=== PATIENT | male | born 1990 | race Caucasian/White ===

== ENCOUNTER 2019-08-20 10:46 | Emergency (ER) | payer MEDICAID ==
[~2019-08-20] VITALS: Ht 185.4 cm; Wt 125.0 kg
[2019-08-20] MEDS ORDERED: DIVA500T2 PO (10:53)
--- NOTE | 2019-08-20 10:56 | NUR ---
pt to ed for t/c seizure today, witnessed by parents, unknown length. pt was non incontinent, but did bite tongue. pt c/o ariza and tongue pain at this time. pt connected to all monitors. tachy with occ pvc, all other vss on ra. med student to bs for assessment. awaiting edmd assessment.
[2019-08-20] MEDS ORDERED: LORazepam 2 MG/ML, 1ML IVPush ONE (11:30)
[2019-08-20] MEDS ORDERED: SODIUM CHLORIDE FLUSH 10ML SYR IVF ONE (11:30)
[2019-08-20] MEDS ORDERED: ACETAMINOPHEN 500 MG TABLET ONE (11:37)
[2019-08-20] MEDS ORDERED: LORazepam 2 MG/ML, 1ML ONE (11:38)
--- NOTE | 2019-08-20 11:45 | NUR ---
pt resting in room with family at bs. vss. urinal provided, used and emptied. no other needs expressed. pt medicated per mar. awaiting resutls.
[2019-08-20] MEDS ORDERED: ACETAMINOPHEN 500 MG TABLET PO ONE (12:00)
[2019-08-20 12:03] LABS: ALANINE AMINOTRANSFERASE 49 U/L (12-78); ALBUMIN 3.5 g/dL (3.4-5.0); ANION GAP 10 mmol/L (5-15); CALCIUM 8.6 mg/dL (8.5-10.1); CHLORIDE 107 mmol/L (98-107); CREATININE 1.08 mg/dL (0.7-1.3)
[2019-08-20 12:08] LABS: ALKALINE PHOSPHATASE 68 U/L (45-117); BILIRUBIN,TOTAL 0.2 mg/dL (0.2-1.0); TOTAL PROTEIN 7.5 g/dL (6.4-8.2)
--- NOTE | 2019-08-20 12:28 | NUR ---
pt resting in room with family at bs. vss. no needs expressed. results back. chart up for recheck.
[2019-08-20] MEDS ORDERED: VALPROIC ACID 250 MG CAPSULE PO ONE (13:00)
[2019-08-20 13:14] VITALS: BP 110/44
--- NOTE | 2019-08-20 13:19 | NUR ---
pt medicated per nov. vss. pt ready for dc. piv removed. dressing now.
== END 2019-08-20 13:30 | disposition home or self-care (01) ==
LOC: ED 13:23
DX: G40.409 Other generalized epilepsy and epileptic syndromes, not intractable, without status epilepticus (principal); R51 Headache
CPT/HCPCS: 36415; 80053; 80164; 83735; 96374; 99283; J2060

== ENCOUNTER 2019-11-11 19:03 | Emergency (ER) | payer MEDICAID ==
[~2019-11-11] VITALS: Ht 185.4 cm; Wt 127.6 kg
[~2019-11-11 19:03] MED LIST: DIVA500T2 PO
[2019-11-11 19:38] VITALS: BP 150/91
[2019-11-11] MEDS ORDERED: HYDROcodone/APAP 5/325 TABLET PO ONE (20:00)
[2019-11-11] MEDS ORDERED: HYDROcodone/APAP 5/325 TABLET ONE (20:04)
--- NOTE | 2019-11-11 20:07 | NUR ---
MEDS ADMIN PER MAR
== END 2019-11-11 20:28 | disposition home or self-care (01) ==
LOC: ED 20:00
DX: K04.7 Periapical abscess without sinus (principal); K02.9 Dental caries, unspecified
CPT/HCPCS: 99283